=== PATIENT | male | born 1960 | race Caucasian/White ===

== ENCOUNTER 2019-09-12 21:43 | Emergency (ER) | payer OTHER, MEDICAID ==
[~2019-09-12] VITALS: Ht 167.6 cm; Wt 127.0 kg
--- NOTE | 2019-09-12 21:45 | NUR ---
PT DEANA ALS. TAKEN TO BED 2
[2019-09-12 21:50] VITALS: BP 90/52
[2019-09-12] MEDS ORDERED: DEXAMETHASONE 10 MG/ML VIAL IVP ONE (22:10)
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
[2019-09-12] MEDS ORDERED: ACETAMINOPHEN EXTRA STRENGTH 500 MG TAB PO ONE (23:40)
--- NOTE | 2019-09-13 00:17 | NUR ---
Patient does not wish to proceed with medical care recommended by DR CASAS. Patient given information related to possible complications, up to and including , which could occur as a result of leaving hospital at this time. Patient verbalizes understanding of risks involved leaving against medical advice. Patient has signed AMA form.
[2019-09-13 00:43] VITALS: BP 115/62
== END 2019-09-13 00:17 | disposition left against medical advice (07) ==
LOC: MED 21:43
DX: T78.2XXA Anaphylactic shock, unspecified, initial encounter (principal)
CPT/HCPCS: 96374; 99283; J1100; 99282